=== PATIENT | female | born 1970 | race Caucasian/White ===

== ENCOUNTER 2016-12-02 12:24 | Emergency (ER) | payer BC ==
[2016-12-02 12:53] VITALS: BP 150/91; PULSE 112; RESP 20; TEMP 98.6; O2SAT 95
--- NOTE | 2016-12-02 13:41 | UCPHY ---
H & P Patient Type: New Smoking Status: Never smoked Time Seen by Provider: 12/02/16 13:17 HPI/ROS: CHIEF COMPLAINT: Sore throat, cough HISTORY OF PRESENT ILLNESS: 46-year-old female presents to Urgent Care complaining of cough and sore throat over last 24 hours. The patient states that her nephew who lives with her tested positive for flu A. She is concerned that she has contracted the flu. She denies feeling short of breath or other chest pain. The cough is keeping her up night. She has a history of frequent sinus infections typically every 6-8 weeks. She was recently on antibiotics 3 weeks ago. She has some nasal congestion and some mild facial pain. Subjective fevers and chills. No vomiting. No diarrhea. No back pain. No dysphagia. REVIEW OF SYSTEMS: Constitutional: Subjective fevers, chills Eyes: No double or blurry vision. ENT: sore throat. Respiratory: Cough. no shortness of breath. Cardiac: No chest pain. Gastrointestinal: No abdominal pain, vomiting or diarrhea. Genitourinary: No dysuria. Musculoskeletal: No neck or back pain. Skin: No rashes. Neurological: No headache. (CaylaReyna) Past Medical/Surgical History: Frequent sinus infections (Isa Kulkarnia Selam) Social History: Single and lives in [place] (Reyna Kulkarni) Physical Exam: General Appearance: Alert, no distress. Afebrile and nontoxic-appearing. 95% on room air, 150/91 Eyes: Pupils equal and round. Extraocular motions are all intact. ENT: Mouth: Mucous membranes moist. Mild posterior pharyngeal injection noted. No exudate. Respiratory: No wheezing, rhonchi, or rales, lungs are clear to auscultation. Cardiovascular: Regular rate and rhythm. Gastrointestinal: Abdomen is soft and nontender, no masses, no rebound or guarding, bowel sounds normal. Neurological: Alert and oriented x 3, cranial nerves II through XII grossly intact Skin: Warm and dry, no rashes. Musculoskeletal: Nontender to palpate along the cervical, thoracic or lumbar spine. Neck is supple. Extremities: Full range of motion and no peripheral edema. Psychiatric: Patient is oriented X 3, there is no agitation. (CaylaReyna) Constitutional: Initial Vital Signs Temperature (C) 37.0 C 12/02/16 12:51 Heart Rate 112 H 12/02/16 12:51 Respiratory Rate 20 12/02/16 12:51 Blood Pressure 150/91 H 12/02/16 12:51 O2 Sat (%) 95 12/02/16 12:51 O2 Delivery Mode Room Air Allergies/Adverse Reactions: codeine Allergy (Verified 12/02/16 12:49) Sulfa (Sulfonamide Antibiotics) Allergy (Verified 12/02/16 12:49) Home Medications: Medication Instructions Recorded [employer] 12/02/16 Metformin 1000 mg 12/02/16 Oseltamivir Phosphate [Tamiflu] 75 mg PO BID #10 cap 12/02/16 Medical Decision Making ED Course/Re-evaluation: 46-year-old female presents with acute onset of cough since yesterday. She has positive influenza exposure. Patient will be treated with Tamiflu twice daily for 5 days. The nurse had performed a flu swab which was positive for flu A. Patient has allergy to codeine any codeine derivative. She will use over-the- counter Delsym or other cough suppressant with dextromethorphan to use only at night to help her sleep. She will return if she feels short of breath or she feels worse in any way. Patient does have a history of frequent sinus infections. I encouraged her to keep her scheduled appointment with the specialist. She will not take antibiotics now. Patient was comfortable with this plan. (Reyna Kulkarni) The patient was evaluated and managed by the Physician Fleet [employer]ic. My co- signature indicates that I have reviewed this chart and I agree with the findings and plan of care as documented. I am the secondary supervising physician. (Leticia Piña) Differential Diagnosis: Including but not limited to influenza, viral upper respiratory infection, strep pharyngitis, bronchitis, pneumonia (Reyna Kulkarni) - Data Points Laboratory Results: 12/02/16 13:15 Influenza Typ A,B (DFA) POSITIVE FOR FLU A H (NEGATIVE) Departure - Departure Disposition: Home, Routine, Self-Care Clinical Impression: Influenza A Condition: Good Instructions: Influenza (ED) Additional Instructions: Tamiflu twice daily for 5 days. Start this medication today. You may continue Mucinex to help relieve congestion. You may also use Delsym, dextromethorphan, to help suppress your cough to help you sleep at night. Referrals: OUT OF STATE,. [Primary Care Provider] - As per Instructions Prescriptions: Oseltamivir Phosphate [Tamiflu] 75 mg PO BID #10 cap - PQRS PQRS Measurement: Not applicable (Reyna Kulkarni)
== END 2016-12-02 13:49 | disposition home or self-care (01) ==
LOC: CED 12:24
DX: J10.1 Influenza due to other identified influenza virus with other respiratory manifestations (principal); Z87.09 Personal history of other diseases of the respiratory system
CPT/HCPCS: 87400-PO; 99214-PO; G0463-PO